=== PATIENT | male | born 1960 | race Caucasian/White ===

== ENCOUNTER 2019-03-10 11:34 | Emergency (ER) | payer BC ==
[2019-03-10] MEDS ORDERED: DIPH/PERTUSS(ACELL)/TETANUS VAC/PF 0.5 ML SYR (>=10YO) IM ONE ×2 (11:37→12:45)
--- NOTE | 2019-03-10 11:39 | ER Document Report ---
ED Medical Screen (RME) - General Chief Complaint: Laceration Stated Complaint: LACERATION Time Seen by Provider: 03/10/19 11:36 TRAVEL OUTSIDE OF THE [place] IN LAST 30 DAYS: No - HPI Notes: 03/10/19 11:38 Patient is a 58-year-old male with history of coronary artery disease with unknown last tetanus who presents complaining of laceration to his left distal medial leg by a sand mill grinder prior to arrival. Patient states that the bleeding has been well controlled. He is able to ambulate and move his leg without difficulty, but does have some discomfort to the area. I have treated and performed a rapid initial assessment of this patient. A comprehensive ED assessment and evaluation of the patient, analysis of test results and completion of medical decision making process will be conducted by additional ED providers. PHYSICAL EXAMINATION: GENERAL: Well-appearing, well-nourished and in no acute distress. A&Ox4. Answers questions appropriately. Left proximal distal thigh: There is an irregular 4 to 5 cm laceration noted that is somewhat deep as well without obvious arterial bleed noted.
[2019-03-10] MEDS ORDERED: LIDOCAINE 1%/EPINEPHRINE INJ 20 ML VIAL INJ ONE ×2 (12:24→12:25)
[2019-03-10] MEDS ORDERED: ACETAMINOPHEN 325 MG TABLET PO ONE (12:24)
[2019-03-10] MEDS ORDERED: CEPHALEXIN 500 MG CAPSULE PO ONE (12:24)
--- NOTE | 2019-03-10 12:25 | ER Document Report ---
HPI - HPI Patient complains to provider of: lac Time Seen by Provider: 03/10/19 11:36 Onset: This afternoon Onset/Duration: Sudden Pain Level: Denies Context: Patient accidentally cut his left leg with a metal pourer brush. Patient with laceration to medial aspect of left thigh. Patient denies any significant tenderness at this time. Associated Symptoms: Other - Leg laceration Relieved by: Denies Similar symptoms previously: No Recently seen / treated by doctor: No - ROS ROS below otherwise negative: Yes Systems Reviewed and Negative: Yes All other systems reviewed and negative - NEURO Neurology: DENIES: Weakness - GASTROINTESTINAL Gastrointestinal: DENIES: Nausea, Patient vomiting - DERM Skin Color: Normal Skin Problems: Laceration Past Medical History - General Information source: Patient - Social History Smoking Status: Never Smoker Frequency of alcohol use: None Drug Abuse: None Occupation: Self-employed Lives with: Spouse/Significant other Family History: Reviewed & Not Pertinent Patient has suicidal ideation: No Patient has homicidal ideation: No - Past Medical History Cardiac Medical History: Reports: Hx Coronary Artery Disease, Hx Hypertension Past Surgical History: Reports: Hx Cardiac Surgery Vertical Provider Document - CONSTITUTIONAL Agree With Documented VS: Yes Exam Limitations: No Limitations General Appearance: WD/WN, No Apparent Distress - INFECTION CONTROL TRAVEL OUTSIDE OF THE [place] IN LAST 30 DAYS: No - HEENT HEENT: Atraumatic, Normocephalic - NECK Neck: Normal Inspection, Supple - RESPIRATORY Respiratory: No Respiratory Distress - MUSCULOSKELETAL/EXTREMETIES Musculoskeletal/Extremeties: MAEW, FROM, Tender - Mild tenderness to left medial thigh with overlying laceration - NEURO Level of Consciousness: Awake, Alert, Appropriate Motor/Sensory: No Motor Deficit - DERM Integumentary: Warm, Dry, Laceration - 5 x 1.5 cm laceration to left medial thigh, no active bleeding Course - Re-evaluation Re-evalutation: 03/10/19 Patient encouraged to return in 2 days for wound recheck given concern about contamination of the wound. A drain was placed in the wound as well. Patient educated on signs of infection that he should return immediately for. Patient verbalized understanding is agreeable with discharge plan of care at this time. - Vital Signs Vital signs: Temp Pulse Resp BP Pulse Ox 97.7 F 81 16 150/90 H 97 03/10/19 11:39 03/10/19 11:39 03/10/19 11:39 03/10/19 11:39 03/10/19 11:39 Procedures - Laceration/Wound Repair Left Thigh Wound length (cm): 5 Wound's Depth, Shape: Linear, Irregular Laceration pre-procedure: Shur-Clens applied Anesthetic type: 1% Lidocaine w/epi Volume Anesthetic (mLs): 4 Wound explored: Contaminated, Foreign body removed Irrigated w/ Saline (mLs): 1,200 Wound Debrided: Minimal Wound Repaired With: Sutures Suture Size/Type: Vicryl, Nylon Number of Sutures: 7 - nylon Layer Closure?: Yes Deep Layer Suture Size/Type: 4:0 Number Deep Layer Sutures: 4 Post-procedure wound care: Sterile dressing applied Post-procedure NV exam normal: Yes Complications: No Discharge - Discharge Clinical Impression: Laceration of left leg Qualifiers: Encounter type: initial encounter Qualified Code(s): S81.812A - Laceration wit hout foreign body, left lower leg, initial encounter Condition: Stable Disposition: HOME, SELF-CARE Instructions: Laceration Care ([facility]), Prophylactic Antibiotic ([facility]), Tetanus Immunization Given ([facility]) Additional Instructions: Return immediately for any new or worsening symptoms: Fever, red streaks, purulent drainage, increased pain or any concerning symptoms Followup with your primary care provider, call tomorrow to make a followup appointment Return in 2 days for wound recheck Keep wound covered as it continues to heal Prescriptions: Amox Tr/Potassium Clavulanate [Augmentin 875-125 Tablet] 1 tab PO BID 10 Days tablet
[2019-03-10 15:03] VITALS: BP 126/85
== END 2019-03-10 15:04 | disposition home or self-care (01) ==
LOC: ER 11:34
DX: S71.112A Laceration without foreign body, left thigh, initial encounter (principal); W26.8XXA Contact with other sharp object(s), not elsewhere classified, initial encounter; S81.812A Laceration without foreign body, left lower leg, initial encounter; X58.XXXA Exposure to other specified factors, initial encounter; I25.10 Atherosclerotic heart disease of native coronary artery without angina pectoris; I10 Essential (primary) hypertension
CPT/HCPCS: 12032; 99282; 90471; 90715; J3490

== ENCOUNTER 2019-03-13 10:32 | Emergency (ER) | payer BC ==
--- NOTE | 2019-03-13 11:36 | ER Document Report ---
HPI - HPI Context: Patient is a 4-year-old male who presents to the emergency department for a recheck of his laceration. 3 days ago he cut his left leg with a fresh meat grader brush. A drain was placed to the area. Denies any fevers, body aches, chills, or any other symptoms. <NAY PIERRE - Last Filed: 03/13/19 11:36> - HPI Patient complains to provider of: Left medial thigh cellulitis after his tool grinder kicked back cutting in skin Onset: Other - 2 days ago Onset/Duration: Worse Quality of pain: Achy Severity: Mild Pain Level: 1 Associated Symptoms: None Exacerbated by: Movement Relieved by: Denies Similar symptoms previously: No Recently seen / treated by doctor: Yes - Nay KUMAR initially saw this patient and ordered labs and CT - ROS ROS below otherwise negative: Yes - DERM Skin Color: Erythema - cellulitis around injured left medial thigh. 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 And was doing well after it was washed and cleaned but then today the left thigh appeared to have some severe erythema and cellulitis and he came to the hospital further evaluation. - Social History Smoking Status: Unknown if Ever Smoked Cigarette use (# per day): No Chew tobacco use (# tins/day): No Smoking Education Provided: No Frequency of alcohol use: None Drug Abuse: None Patient has suicidal ideation: No Patient has homicidal ideation: No - Medical History Medical History: Negative <NICOLASA BLEVINS JR - Last Filed: 03/13/19 16:37> Vertical Provider Document - INFECTION CONTROL TRAVEL OUTSIDE OF THE [place] IN LAST 30 DAYS: No <NAY PIERRE - Last Filed: 03/13/19 11:36> Course - Vital Signs Vital signs: Temp Pulse Resp BP Pulse Ox 97.7 F 77 16 138/90 H 95 03/13/19 10:47 03/13/19 10:47 03/13/19 10:47 03/13/19 10:47 03/13/19 10:47 <NAY PIERRE - Last Filed: 03/13/19 11:36> - Vital Signs Vital signs: Temp Pulse Resp BP Pulse Ox 97.7 F 77 16 138/90 H 95 03/13/19 10:47 03/13/19 10:47 03/13/19 10:47 03/13/19 10:47 03/13/19 10:47 - Laboratory Result Diagrams: 03/13/19 12:25 03/13/19 12:25 Laboratory results interpreted by me: 03/13/19 12:25 Carbon Dioxide 31 H - Diagnostic Test Radiology reviewed: Pending <IDALIANICOLASA GARZA JR - Last Filed: 03/13/19 16:37> Procedures - Additional Procedures IO insertion Time performed: 16:12 Additional Procedures: Other - drain removal after Betadine swab and cleansing done by myself; wound appears to be healing well with erythema around the wound itself around 1 cm diameter.. Initial ink pen marking approximately 20 cm in diameter were evident. No obvious erythema to this marking was noted. Wound appears to be improving according to and patient <NICOLASA BLEVINS JR - Last Filed: 03/13/19 16:37> Discharge <NAY PIERRE - Last Filed: 03/13/19 11:36> - Discharge Admitting Provider: Personal doctor and may follow-up here in the ER in 2 days <NICOLASA BLEVINS JR - Last Filed: 03/13/19 16:37> - Discharge Clinical Impression: Wound cellulitis, Change or removal of drains Condition: Fair Disposition: HOME, SELF-CARE Additional Instructions: Follow-up with personal doctor in 2 days keep wound clean and dry sutures out as directed; may return here in 2 days for reinspection of wound. Eat yogurt daily because you are on both Levaquin and clindamycin antibiotics; this will help reestablish bacteria that are good for you in your intestine Prescriptions: Mupirocin [Bactroban 2% Ointment 22 gm] 1 applic NASL HSP PRN #1 tube PRN Reason: Congestion Clindamycin HCl [Cleocin 150 mg Capsule] 150 mg PO BID #14 capsule Levofloxacin [Levaquin 750 mg Tablet] 500 mg PO DAILY #5 tablet Referrals: JUSTA NOVOA MD [Primary Care Provider] - Follow up as needed
[2019-03-13] MEDS ORDERED: CLINDAMYCIN 300 MG/D5W RTU 300 MG/50 ML RTUPB IV ONE (12:10)
[2019-03-13] MEDS ORDERED: NORMAL SALINE 1000 ML 1,000 ML IV ONE (12:12)
--- NOTE | 2019-03-13 12:12 | ER Document Report ---
ED Medical Screen (RME) - General Chief Complaint: Suture Recheck Stated Complaint: SUTURE CHECK Time Seen by Provider: 03/13/19 11:32 Primary Care Provider: JUSTA NOVOA MD [Primary Care Provider] - Follow up as needed Notes: Patient is a 4-year-old male who presents to the emergency department for a recheck of his laceration. 3 days ago he cut his left leg with a cutter grinder operator brush. A drain was placed to the area. Denies any fevers, body aches, chills, or any other symptoms. Patient was originally seen in triage and slotted for supra track area. When I assessed him, there was significant cellulitis to the area. Patient is being upgraded and he will have clindamycin, blood cultures, basic labs, and a CT of the left lower extremity. Exam: Edema noted around wound. Outlined with marker. I have greeted and performed a rapid initial assessment of this patient. A comprehensive ED assessment and evaluation of the patient, analysis of test results and completion of medical decision making process will be conducted by an additional ED providers. TRAVEL OUTSIDE OF THE [place] IN LAST 30 DAYS: No - Related Data Allergies/Adverse Reactions: No Known Allergies Allergy (Verified 03/10/19 11:46) Past Medical History - Social History Frequency of alcohol use: None Drug Abuse: None - Past Medical History Cardiac Medical History: Reports: Hx Coronary Artery Disease, Hx Hypertension Past Surgical History: Reports: Hx Cardiac Surgery Physical Exam - Vital signs Vitals: Temp Pulse Resp BP Pulse Ox 97.7 F 77 16 138/90 H 95 03/13/19 10:47 03/13/19 10:47 03/13/19 10:47 03/13/19 10:47 03/13/19 10:47 Course - Vital Signs Vital signs: Temp Pulse Resp BP Pulse Ox 97.7 F 77 16 138/90 H 95 03/13/19 10:47 03/13/19 10:47 03/13/19 10:47 03/13/19 10:47 03/13/19 10:47 Doctor's Discharge - Discharge Referrals: JUSTA NOVOA MD [Primary Care Provider] - Follow up as needed
[2019-03-13 13:00] LABS: ABSOLUTE EOSINOPHILS # (AUTO) 0.2 10^3/uL (0.0-0.6); ABSOLUTE LYMPHOCYTES (AUTO) 1.5 10^3/uL (0.5-4.7); ABSOLUTE MONOCYTES (AUTO) 0.6 10^3/uL (0.1-1.4); ABSOLUTE NEUT (AUTO) 4.2 10^3/uL (1.7-8.2); BASOPHILS % (AUTO) 0.7 % (0-2); EOSINOPHILS % (AUTO) 3.1 % (0-6); HEMATOCRIT 44.8 % (37.9-51.0); HEMOGLOBIN 15.3 g/dL (13.5-17.0); LYMPHOCYTES % (AUTO) 23.2 % (13-45); MEAN CORPUSCULAR HEMOGLOBIN 30.4 pg (27.0-33.4); MEAN CORPUSCULAR HGB CONC 34.2 g/dL (32.0-36.0); MEAN CORPUSCULAR VOLUME 89 fl (80-97); MONOCYTES % (AUTO) 9.3 % (3-13); PLATELET COUNT 257 10^3/uL (150-450); RED BLOOD COUNT 5.04 10^6/uL (4.35-5.55); RED CELL DISTRIBUTION WIDTH 13.9 % (11.5-14.0); SEGMENTED NEUTROPHILS % (AUTO) 63.7 % (42-78); TOTAL CELLS COUNTED % (AUTO) 100 %; WHITE BLOOD COUNT 6.5 10^3/uL (4.0-10.5)
[2019-03-13 13:12] LABS: ALBUMIN 4.5 g/dL (3.5-5.0); ALKALINE PHOSPHATASE 61 U/L (38-126); ANION GAP 8 (5-19); ASPARTATE AMINO TRANSFERASE 26 U/L (17-59); BILIRUBIN,DIRECT 0.2 mg/dL (0.0-0.4); BILIRUBIN,TOTAL 0.6 mg/dL (0.2-1.3); BLOOD UREA NITROGEN 16 mg/dL (7-20); CALCIUM 9.8 mg/dL (8.4-10.2); CARBON DIOXIDE 31 mmol/L (22-30); CHLORIDE 102 mmol/L (98-107); GLUCOSE 82 mg/dL (75-110); POTASSIUM 4.3 mmol/L (3.6-5.0); TOTAL PROTEIN 7.1 g/dL (6.3-8.2)
[2019-03-13 15:50] VITALS: BP 146/93
[2019-03-13] MEDS ORDERED: LEVOFLOXACIN 750 MG TABLET PO ONE (16:12)
--- NOTE | 2019-03-13 16:41 | ER Document Report ---
ED General - General Chief Complaint: Suture Recheck Stated Complaint: SUTURE CHECK Time Seen by Provider: 03/13/19 11:32 Primary Care Provider: JUSTA NOVOA MD [Primary Care Provider] - Follow up as needed TRAVEL OUTSIDE OF THE [place] IN LAST 30 DAYS: No - HPI Onset: Other - [facility]: [id number] Date of : 1960Patient Status: Emergency Emergency Provider: NICOLASA BLEVINS JRAccount Number: [id number] Date: 03/13/19 11:36Initialization Date: 03/13/19 11:36 HPI - HPI Context: Patient is a 4-year-old male who presents to the emergency department for a recheck of his laceration. 3 days ago he cut his left leg with a journeyman meat cutter brush. A drain was placed to the area. Denies any fevers, body aches, chills, or any other symptoms. <NAY JENNINGS - Last Filed: 03/13/19 11:36> - HPI Patient comp lains to provider of: Left medial thigh cellulitis after his head bone grinder kicked back cutting in skin Onset: Other - 2 days ago Onset/Duration: Worse Quality of pain: Achy Severity: Mild Pain Level: 1 Associated Symptoms: None Exacerbated by: Movement Relieved by: Denies Similar symptoms previously: No Recently seen / treated by doctor: Yes - Nay jennings OREMAN initially saw this patient and ordered labs and CT - ROS ROS below otherwise negative: Yes - DERM Skin Color: Erythema - cellulitis around injured left medial thigh. 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 And was doing well after it was washed and cleaned but then today the left thigh appeared to have some severe erythema and cellulitis and he came to the hospital further evaluation. - Social History Smoking Status: Unknown if Ever Smoked Cigarette use (# per day): No Chew tobacco use (# tins/day): No Smoking Education Provided: No Frequency of alcohol use: None Drug Abuse: None Patient has suicidal ideation: No Patient has homicidal ideation: No - Medical History Medical History: Negative <NICOLASA BLEVINS JR - Last Filed: 03/13/19 16:37> Vertical Provider Document - INFECTION CONTROL TRAVEL OUTSIDE OF THE [place] IN LAST 30 DAYS: No <NAY JENNINGS - Last Filed: 03/13/19 11:36> Course - Vital Signs Vital signs: TempPulseRespBPPulse Ox 97.7 F 77 16 138/90 H 95 03/13/19 10:47 03/13/19 10:47 03/13/19 10:47 03/13/19 10:47 03/13/19 10:47 <NAY JENNINGS - Last Filed: 03/13/19 11:36> - Vital Signs Vital signs: TempPulseRespBPPulse Ox 97.7 F 77 16 138/90 H 95 03/13/19 10:47 03/13/19 10:47 03/13/19 10:47 03/13/19 10:47 03/13/19 10:47 - Laboratory Result Diagrams: 03/13/19 12:25 [Image 0] 03/13/19 12:25 [Image 1] Laboratory results interpreted by me: 03/13/19 12:25 Carbon Dioxide 31 H - Diagnostic Test Radiology reviewed: Pending <NICOLASA BLEVINS JR - Last Filed: 03/13/19 16:37> Procedures - Additional Procedures IO insertion Time performed: 16:12 Additional Procedures: Other - drain removal after Betadine swab and cleansing done by myself; wound appears to be healing well with erythema around the wound itself around 1 cm diameter.. Initial ink pen marking approximately 20 cm in diameter were evident. No obvious erythema to this marking was noted. Wound appears to be improving according to and patient <NICOLASA BLEVINS JR - Last Filed: 03/13/19 16:37> Discharge <NAY JENNINGS - Last Filed: 03/13/19 11:36> - Discharge Admitting Provider: Personal doctor and may follow- up here in the ER in 2 days <NICOLASA BLEVINS JR - Last Filed: 03/13/19 16:37> - Discharge Clinical Impression: Wound cellulitis, Change or removal of drains Condition: Fair Disposition: HOME, SELF-CARE Additional Instructions: Follow-up with personal doctor in 2 days keep wound clean and dry sutures out as directed; may return here in 2 days for reinspection of wound. Eat yogurt daily because you are on both Levaquin and clindamycin antibiotics; this will help reestablish bacteria that are good for you in your intestine Prescriptions: Mupirocin [Bactroban 2% Ointment 22 gm] 1 applic NASL HSP PRN #1 tube PRN Reason: Congestion Clindamycin HCl [Cleocin 150 mg Capsule] 150 mg PO BID #14 ca psule Levofloxacin [Levaquin 750 mg Tablet] 500 mg PO DAILY #5 tablet Referrals: JUSTA NOVOA MD [Primary Care Provider] - Follow up as needed - Related Data Allergies/Adverse Reactions: No Known Allergies Allergy (Verified 03/10/19 11:46) Past Medical History - General Information source: Patient, Relative - 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 And was doing well after it was washed and cleaned but then today the left thigh appeared to have some severe erythema and cellulitis and he came to the hospital further evaluation. - Social History Smoking Status: Unknown if Ever Smoked Cigarette use (# per day): No Chew tobacco use (# tins/day): No Frequency of alcohol use: None Drug Abuse: None Family History: Reviewed & Not Pertinent Patient has suicidal ideation: No Patient has homicidal ideation: No - Medical History Medical History: Negative - Past Medical History Cardiac Medical History: Reports: Hx Coronary Artery Disease, Hx Hypertension Past Surgical History: Reports: Hx Cardiac Surgery Review of Systems - Review of Systems Constitutional: No symptoms reported EENT: No symptoms reported Cardiovascular: No symptoms reported Respiratory: No symptoms reported Gastrointestinal: No symptoms reported Genitourinary: No symptoms reported Male Genitourinary: No symptoms reported Musculoskeletal: No symptoms reported Skin: Change in color, Other - Patient appears to be clean and dry and approximately 5 cm in length. Drain was removed by myself Hematologic/Lymphatic: No symptoms reported Neurological/Psychological: No symptoms reported Physical Exam - Vital signs Vitals: Temp Pulse Resp BP Pulse Ox 97.7 F 77 16 138/90 H 95 03/13/19 10:47 03/13/19 10:47 03/13/19 10:47 03/13/19 10:47 03/13/19 10:47 - Skin Skin Temperature: Warm Skin Color: Erythema, Other - Mild erythema around surrounding wound linear purple marking around 20 cm diameter had no edema or erythema sutures appear to be clean and dry Course - Vital Signs Vital signs: Temp Pulse Resp BP Pulse Ox 97.6 F 69 18 146/93 H 97 03/13/19 15:45 03/13/19 15:45 03/13/19 15:45 03/13/19 15:45 03/13/19 15:45 - Laboratory Result Diagrams: 03/13/19 12:25 03/13/19 12:25 Laboratory results interpreted by me: 03/13/19 12:25 Carbon Dioxide 31 H Procedures - Additional Procedures IO insertion Time performed: 16:41 Additional Procedures: Other - note patient had drain removed on my initial note Discharge - Discharge Clinical Impression: Wound cellulitis, Change or removal of drains Condition: Fair Disposition: HOME, SELF-CARE Additional Instructions: Follow-up with personal doctor in 2 days keep wound clean and dry sutures out as directed; may return here in 2 days for reinspection of wound. Eat yogurt daily because you are on both Levaquin and clindamycin antibiotics; this will help reestablish bacteria that are good for you in your intestine Prescriptions: Mupirocin [Bactroban 2% Ointment 22 gm] 1 applic NASL HSP PRN #1 tube PRN Reason: Congestion Clindamycin HCl [Cleocin 150 mg Capsule] 150 mg PO BID #14 capsule Levofloxacin [Levaquin 750 mg Tablet] 500 mg PO DAILY #5 tablet Referrals: JUSTA NOVOA MD [Primary Care Provider] - Follow up as needed
--- NOTE | 2019-03-13 17:27 | RADIOLOGY REPORT (SQ) ---
EXAM DESCRIPTION: CT LEFT LOWER EXTREMITY WITH COMPLETED DATE/TIME: 03/13/2019 2:29 pm REASON FOR STUDY: eval possible abcess; previous laceration COMPARISON: None. TECHNIQUE: CT scan of the left thigh performed from the lesser trochanter of the femur through the m id lower leg following the uncomplicated intravenous administration of 50 mL Omnipaque 350 iodinated contrast IV. Images reviewed with soft tissue and bone windows. Reconstructed coronal and sagittal MPR images reviewed. All images stored on PACS. All CT scanners at this facility use dose modulation, iterative reconstruction, and/or weight based d osing when appropriate to reduce radiation dose to as low as reasonably achievable (ALARA). [facility]: Dose Right [facility]: CareDose [facility]: Dose Right [facility]: Teradose 4D [facility]: [employer] RADIATION DOSE: CT Rad equipment meets quality standard of care and radiation dose reduction techniq ues were employed. CTDIvol: 5.4 mGy. DLP: 318 mGy-cm. mGy. LIMITATIONS: None. FINDINGS: OSSEOUS STRUCTURES: No acute fracture. No worrisome bone lesions. SOFT TISSUES: There is a soft tissue wound of the medial left thigh containing a surgical drain with adjacent superficial soft tissue edema (series 4, image 88). No discrete fluid collection is identif ied. OTHER: No other significant finding. IMPRESSION: There is a soft tissue wound of the medial left thigh containing a surgical drain with a djacent superficial soft tissue edema (series 4, image 88). No discrete fluid collection is identifi ed. TECHNICAL DOCUMENTATION: JOB ID: [id number] Quality ID # [id number]: Final reports with documentation of one or more dose reduction techniques (e.g., Au tomated exposure control, adjustment of the mA and/or kV according to patient size, use of iterative reconstruction technique) 2010 [employer]- All Rights Reserved Reading location - IP/workstation name: [email or web address]
== END 2019-03-13 17:03 | disposition home or self-care (01) ==
LOC: ER 10:32
DX: Z48.03 Encounter for change or removal of drains (principal); S81.812D Laceration without foreign body, left lower leg, subsequent encounter; L03.116 Cellulitis of left lower limb; W29.8XXD Contact with other powered hand tools and household machinery, subsequent encounter
CPT/HCPCS: 99283; 96365; 36415; 87040; 85025; 80053; 73701; J3490; J7030